=== PATIENT | female | born 1955 | race Asian ===

== ENCOUNTER → 2020-02-06 12:09 | Outpatient (BNVA) | payer SELFPAY | PROVIDERS: Family Provider Family Medicine; PCP Family Medicine; Visit Provider Family Medicine | DX: I10 Essential (primary) hypertension (principal); E11.65 Type 2 diabetes mellitus with hyperglycemia; E78.00 Pure hypercholesterolemia, unspecified; Z79.4 Long term (current) use of insulin | CPT/HCPCS: 80053; 80061; 83036; 85025 ==

== ENCOUNTER → 2020-11-19 16:08 | Outpatient (BNVA) | payer SELFPAY | PROVIDERS: Family Provider Family Medicine; PCP Family Medicine; Visit Provider Family Medicine | DX: N30.00 Acute cystitis without hematuria (principal); R11.2 Nausea with vomiting, unspecified; R52 Pain, unspecified | CPT/HCPCS: 81000 ==

== ENCOUNTER → 2022-07-13 15:09 | Outpatient (BNVA) | payer SELFPAY | PROVIDERS: Family Provider Family Medicine; PCP Family Medicine; Visit Provider Family Medicine | DX: E11.65 Type 2 diabetes mellitus with hyperglycemia (principal); E78.00 Pure hypercholesterolemia, unspecified; I10 Essential (primary) hypertension; Z79.4 Long term (current) use of insulin | CPT/HCPCS: 80053; 80061; 83036; 85025 ==

== ENCOUNTER → 2023-09-12 16:26 | Outpatient (BNVA) | payer SELFPAY | PROVIDERS: Family Provider Family Medicine; PCP Family Medicine; Visit Provider Family Medicine | DX: E11.65 Type 2 diabetes mellitus with hyperglycemia (principal); Z79.4 Long term (current) use of insulin; E78.00 Pure hypercholesterolemia, unspecified; I10 Essential (primary) hypertension; N18.9 Chronic kidney disease, unspecified; M12.811 Other specific arthropathies, not elsewhere classified, right shoulder; Z00.00 Encounter for general adult medical examination without abnormal findings; M47.9 Spondylosis, unspecified | CPT/HCPCS: 80053; 80061; 83036; 85025 ==

== ENCOUNTER 2024-07-02 12:13 | Outpatient (CLI) | payer SELFPAY ==
--- NOTE | 2024-07-02 12:15 | USCV_ITS ---
Carmen Bradley Age: 68 Gender: F : 1955 Exam Date: 07/02/2024 12:28 Ordering Phys: Zeinab Ortez MD Technologist: [employer] Exam Location: [facility] [place] Indication: swelling, pain. TDS due to habitus HISTORY: Lower extremity swelling. Lower extremity pain. PROCEDURES: Venous duplex imaging was performed in only the right lower extremity. The following venous structures were evaluated: common femoral vein, profunda vein, proximal portion of the greater saphenous vein, superficial femoral vein, and the popliteal vein. In addition, the posterior tibial and peroneal trunk were evaluated. FINDINGS: No evidence of DVT seen in any vessel visualized at this time. TDs due to habitus CONCLUSIONS No evidence of right lower extremity DVT. Ian Berger MD (Electronically Signed) Final Date: 02 July 2024 15:33 S
== END 2024-07-02 12:14 | disposition home or self-care (01) ==
PROVIDERS: PCP Family Medicine; Visit Provider Family Medicine
DX: I82.401 Acute embolism and thrombosis of unspecified deep veins of right lower extremity (principal)
CPT/HCPCS: 93971

== ENCOUNTER 2024-08-01 07:12 | Outpatient (CLI) | payer SELFPAY ==
--- NOTE | 2024-08-01 07:00 | CT_ITS ---
WS: [id number] CT lumbar spine wo con* [id number] REASON FOR EXAM: M51.16 - Intervertebral disc disorders with radiculopathy... IV CONTRAST ADMINISTERED: No contrast TOTAL EXAM DLP: 869.[address] scans at [facility] use at least one of these dose optimization techniques: automated exposure control; mA and/or kV adjustment per patient size (includes targeted exams where dose is matched to clinical indication); or iterative reconstruction. FINDINGS: Moderate rotatory dextroscoliosis. Straightening of the normal lordosis. No vertebral body compression fracture or focal lesion. T12-L1: Mild narrowing of the disc space. Mild vertebral body osteophytosis. No focal disc displacement. L1-L2: Significant narrowing of the disc space with vacuum phenomena. Mild to moderate vertebral body osteophytosis. No focal disc displacement. L2-L3: Severe narrowing of the disc space with vacuum phenomenon. Significant vertebral body osteophytosis. No focal disc displacement. L3-L4: Severe narrowing of the disc space with vacuum phenomenon. Moderate vertebral body osteophytosis. 4 mm of anterolisthesis of L4 in relation to L3. No focal disc displacement. L4-L5: Mild to moderate narrowing of the disc space with minimal vacuum phenomenon. Mild vertebral body osteophytosis. 4 mm of anterolisthesis of L4 on L5. Significant hypertrophic degenerative arthropathy of the facet joints. L5-S1: Mild to moderate narrowing of the disc space with vacuum phenomenon. Significant vertebral body osteophytosis. Diffuse bulging of the disc annulus. No focal disc displacement. Significant hypertrophic degenerative arthropathy of the facet joints. CT/CT lumbar spine wo con* [id number] IMPRESSION: Multilevel degenerative disc disease. CT sensitivity to focal disc displacement is limited however no focal displacement is identified. Spondylolistheses as above with no significant bony spinal stenosis. No sacral insufficiency fractures.
== END 2024-08-01 07:13 | disposition home or self-care (01) ==
PROVIDERS: PCP Family Medicine; Visit Provider Family Medicine
DX: M51.16 Intervertebral disc disorders with radiculopathy, lumbar region (principal); M51.362 Other intervertebral disc degeneration, lumbar region with discogenic back pain and lower extremity pain; M41.86 Other forms of scoliosis, lumbar region; M25.78 Osteophyte, vertebrae; M51.34 Other intervertebral disc degeneration, thoracic region; M43.16 Spondylolisthesis, lumbar region; M47.896 Other spondylosis, lumbar region; M51.372 Other intervertebral disc degeneration, lumbosacral region with discogenic back pain and lower extremity pain; M47.897 Other spondylosis, lumbosacral region
CPT/HCPCS: 72131

== ENCOUNTER → 2024-08-21 15:20 | Outpatient (BNVA) | payer SELFPAY | PROVIDERS: PCP Family Medicine; Visit Provider Orthopaedic Surgery | DX: M51.16 Intervertebral disc disorders with radiculopathy, lumbar region (principal) | CPT/HCPCS: 72110 ==

== ENCOUNTER → 2024-10-23 11:26 | Outpatient (BNVA) | payer SELFPAY | PROVIDERS: PCP Family Medicine; Visit Provider Family Medicine | DX: I10 Essential (primary) hypertension (principal); E78.00 Pure hypercholesterolemia, unspecified; E11.65 Type 2 diabetes mellitus with hyperglycemia; Z79.4 Long term (current) use of insulin; M19.90 Unspecified osteoarthritis, unspecified site; M35.3 Polymyalgia rheumatica | CPT/HCPCS: 80053; 80061; 83036; 85025; 85651; 86160; 86162; 86235; 86255; 86376; 86431 ==

== ENCOUNTER → 2024-11-29 15:17 | Outpatient (BNVA) | payer MEDICARE, SELFPAY | PROVIDERS: PCP Family Medicine; Visit Provider Internal Medicine Rheumatology | DX: M13.0 Polyarthritis, unspecified (principal); M47.816 Spondylosis without myelopathy or radiculopathy, lumbar region; M75.41 Impingement syndrome of right shoulder; E11.9 Type 2 diabetes mellitus without complications | CPT/HCPCS: 99204 ==

== ENCOUNTER → 2024-12-03 16:24 | Outpatient (BNVA) | payer MEDICARE, SELFPAY | PROVIDERS: PCP Family Medicine; Visit Provider Internal Medicine Rheumatology | DX: M75.52 Bursitis of left shoulder (principal) | CPT/HCPCS: 20610; J1010 ==

== ENCOUNTER → 2024-12-12 14:53 | Outpatient (BNVA) | payer MEDICARE, SELFPAY | PROVIDERS: PCP Family Medicine; Visit Provider Internal Medicine Rheumatology | DX: M25.511 Pain in right shoulder (principal); M75.51 Bursitis of right shoulder; M75.41 Impingement syndrome of right shoulder | CPT/HCPCS: 20610; J1010; J9999 ==

== ENCOUNTER → 2025-01-21 13:05 | Outpatient (BNVA) | payer MEDICARE, SELFPAY | PROVIDERS: PCP Family Medicine; Referring Provider Family Medicine; Visit Provider Anesthesiology Pain Medicine | DX: M51.16 Intervertebral disc disorders with radiculopathy, lumbar region (principal) | CPT/HCPCS: 99204 ==

== ENCOUNTER → 2025-02-05 15:06 | Outpatient (BNVA) | payer MEDICARE, SELFPAY | PROVIDERS: PCP Family Medicine; Visit Provider Anesthesiology Pain Medicine | DX: M54.16 Radiculopathy, lumbar region (principal); E11.9 Type 2 diabetes mellitus without complications | CPT/HCPCS: 36416; 64483; 64484; 82962; J1100; J3490; J9999 ==

== ENCOUNTER → 2025-02-25 09:24 | Outpatient (BNVA) | payer MEDICARE, SELFPAY | PROVIDERS: PCP Family Medicine; Visit Provider Anesthesiology Pain Medicine | DX: M51.16 Intervertebral disc disorders with radiculopathy, lumbar region (principal) | CPT/HCPCS: 99214 ==